=== PATIENT | female | born 1985 | race Asian ===

== ENCOUNTER → 2016-06-13 | Outpatient (CLI) | payer OTHER ==
[~2016-06-13] MED LIST: ISOVUE-370 76% 100ML VIAL (Q9967) As Ordered ONE
--- NOTE | 2016-06-13 13:53 | REP ---
HYSTEROSALPINGOGRAM: HISTORY: Female infertility. 1 minute 12 seconds of fluoroscopy time was utilized. PROCEDURE: Fluoroscopic sequential spot films were obtained. Contrast was injected by the referring steel loader. FINDINGS: Multiple fluoroscopic spot films of the pelvis demonstrate that the uterus is tipped to the right. The uterine endometrium is normal in position. There is no evidence of filling defect or synechia. Isthmic segments of the fallopian tubes are opacified bilaterally. There is ultimately opacification of a portion of each ampullary segment. At this point however, interstitial lymphatic contrast uptake was observed particularly in the region of the right fallopian tube. No peritoneal spillage could be observed from either fallopian tube. There was fairly prominent interstitial lymphatic uptake with ultimate partial opacification of the pelvic veins. Drainage view shows no abnormality. A lateral view of the pelvis following removal of the speculum and endometrial cannula shows no evidence of peritoneal contrast. IMPRESSION: Bilateral tubal occlusion. Prominent interstitial and lymphatic filling. Unremarkable endometrial cavity. Signed by Omid Reyes MD 06/13/2016 02:07 P
== END ==
LOC: M RADPRO 11:35
PROVIDERS: ATTEND Obstetrics & Gynecology
DX: N97.1 Female infertility of tubal origin (principal)
CPT/HCPCS: 58340; 74740; Q9967

== ENCOUNTER → 2016-08-21 | Outpatient (CLI) | payer OTHER ==
--- NOTE | 2016-08-21 16:12 | REP ---
DIGITAL DIAGNOSTIC UNILATERAL RIGHT BREAST MAMMOGRAPHY AND FOCUSED RIGHT BREAST SONOGRAPHY: History: Right breast lump. No comparison mammography. Mammographic findings: A skin marker is affixed to the skin at the site of the palpable lump. This projects in the upper outer quadrant. Heterogeneous dense fibroglandular background echotexture is seen in a pattern which inhibits the sensitivity of mammography. No mass lesion is seen. No architectural distortion or microcalcification is observed. No mammographic abnormality. Sonographic findings: The right breast is scanned from 9 o'clock to 12 o'clock at the with the palpable lump at 10 o'clock. Heterogeneous fibroglandular background echotexture is seen corresponding with the dense mammographic tissue. Within this echodense background texture are multiple somewhat nodular hypoechoic areas with a benign appearance. No irregular or spiculated lesion is seen. At 10 o'clock laterally at the level of the palpable lump, there is a hypoechoic oval shaped nodule measuring 0.7 x 0.6 x 0.4 cm. This has a small hilar architecture consistent with a small lymph node. More laterally at 10 o'clock there is a second lymph node measuring 2.1 x 2.4 x 0.5 cm also with an echogenic hilum. This may be two adjacent lymph nodes. Impression: BIRADS category II benign breast imaging. Sonographic findings at the site of the palpable lump suggest a small intramammary lymph node. Clinical follow-up is advised. No suspicious imaging findings. This negative report should not dissuade one from biopsy of a palpable lump depending on its clinical characteristics. This mammogram was interpreted with the aid of an FDA-approved computer-aided detection system. The patient states she had a clinical breast exam in July 2016. The patient letter being requested is M2. Signed by Omid Reyes MD 08/22/2016 07:29 A
== END ==
LOC: M RAD 10:28
PROVIDERS: ATTEND Family Medicine
DX: R92.8 Other abnormal and inconclusive findings on diagnostic imaging of breast (principal)
CPT/HCPCS: 76642; G0206

== ENCOUNTER → 2016-11-24 | Outpatient (CLI) | payer OTHER ==
[2016-11-24 10:30] LABS: ESTRADIOL 58.7 PG/ML; PROGESTERONE 30.6 NG/ML
== END ==
LOC: M LAB 07:41
PROVIDERS: ATTEND Obstetrics & Gynecology Reproductive Endocrinology
DX: N97.9 Female infertility, unspecified (principal)

== ENCOUNTER → 2016-11-27 | Outpatient (CLI) | payer OTHER ==
[2016-11-27 09:03] LABS: HCG, SERUM QUANTITATIVE < 1.0 MIU/ML
[2016-11-27 10:08] LABS: PROGESTERONE 21.7 NG/ML
== END ==
LOC: M LAB 08:09
PROVIDERS: ATTEND Obstetrics & Gynecology Reproductive Endocrinology
DX: N97.9 Female infertility, unspecified (principal)

== ENCOUNTER → 2016-12-01 | Outpatient (CLI) | payer OTHER ==
--- NOTE | 2016-12-01 09:50 | REP ---
TRANSVAGINAL PELVIC ULTRASOUND FOLLICLE STUDY: Real-time sonographic evaluation of the pelvis is performed utilizing transvaginal technique. The uterus measures 8.9 x 4.5 x 6.2 cm. Possible fundal fibroid measures 1.9 x 1.9 x 2.2 cm. Endometrial stripe measures 4 mm. Right ovary measures 3.1 x 2.3 x 2.1 cm. There are approximately 17 subcentimeter follicles in the right ovary. The left ovary measures 2.6 x 2.2 x 3.2 cm. There are approximately 19 subcentimeter follicles in the left ovary. No follicles are seen in either ovary greater than 1 cm in diameter. Signed by Jani Naidu MD 12/01/2016 05:21 P
[2016-12-01 10:30] LABS: HCG, SERUM QUANTITATIVE < 1.0 MIU/ML
[2016-12-01 10:39] LABS: PROGESTERONE 0.8 NG/ML
[2016-12-01 10:40] LABS: ESTRADIOL 49.1 PG/ML; FOLLICLE STIMULATING HORMONE 6.1 mIU/mL; LUTEINIZING HORMONE 1.3 mIU/mL
== END ==
LOC: M RAD 09:00 → M LAB 09:00
PROVIDERS: ATTEND Obstetrics & Gynecology Reproductive Endocrinology
DX: E28.9 Ovarian dysfunction, unspecified (principal)

== ENCOUNTER → 2016-12-08 | Outpatient (CLI) | payer OTHER ==
--- NOTE | 2016-12-08 09:12 | REP ---
Pelvic ultrasound, endovaginal imaging for follicle analysis: Right ovary There are no follicles greater than 10 mm. There are seven follicles in the 2.1 - 8.5 mm range of. The right ovary is normal size measuring 3.3 x 1.4 x 2.7 cm. Left ovary There are no follicles greater than 10 mm. There are 12 follicles in the 2.6 - 9.3 mm size range. Left ovary is normal size measuring 3.1 x 2.0 x 2.6 cm. The uterus is anteverted and normal size measuring 8.7 x 4.4 x 5 point 7 cm. There is a 2.3 x 2.7 by 2.4 cm submucosal fibroid in the posterior myometrium. The endometrium is not thickened measuring 7.2 mm. The endometrium has a trilaminar appearance. Signed by Jani Villasenor MD 12/08/2016 09:04 A
[2016-12-08 10:13] LABS: ESTRADIOL 60.5 PG/ML; LUTEINIZING HORMONE 3.9 mIU/mL; PROGESTERONE < 0.2 NG/ML
== END ==
LOC: M RAD 08:32
PROVIDERS: ATTEND Obstetrics & Gynecology Reproductive Endocrinology
DX: E28.9 Ovarian dysfunction, unspecified (principal)

== ENCOUNTER → 2016-12-13 | Outpatient (CLI) | payer OTHER ==
--- NOTE | 2016-12-13 13:06 | REP ---
REASON: Infertility. The uterus measures 8.8 x 4.3 x 5.5 cm. The endometrial echo complex measures 3 mm. There is a small amount of free fluid in the cul-de-sac. Right ovary measures 3.2 x 1.8 x 4 cm. Within the right ovary there is a 1.5 x 1.3 cm sized follicle with seven additional follicles in the 3.8 to 9.6 mm range. Left ovary measures 2.6 x 2 x 2.5 cm. Within the left ovary there are five follicles which measure in the range from 4.5 to 8.4 mm. IMPRESSION: Ovarian follicle study as described above. Signed by Matti Coulter DO 12/13/2016 02:22 P
[2016-12-13 13:33] LABS: ESTRADIOL 716.2 PG/ML; LUTEINIZING HORMONE 3.8 mIU/mL; PROGESTERONE 0.3 NG/ML
== END ==
LOC: M RAD 12:00
PROVIDERS: ATTEND Obstetrics & Gynecology Reproductive Endocrinology
DX: E28.9 Ovarian dysfunction, unspecified (principal)

== ENCOUNTER → 2016-12-15 | Outpatient (CLI) | payer OTHER ==
--- NOTE | 2016-12-15 08:08 | REP ---
Clinical: Infertility. Technique: Transvaginal examination. Comparison: 12/13/2016. Findings: Uterus measures 8.2 x 4.5 x 6.6 cm. Endometrial complex measures 8.9 mm thickness. No discrete uterine or endometrial abnormalities appreciated. No pelvic fluid or adnexal mass lesions. Right ovary measures 3.4 x 1.5 x 2.5 cm approximately nine sub centimeter follicles. Left ovary measures 2.9 x 1.7 x 2.0 cm with approximately 17 sub centimeter follicles and 7.1 mm paraovarian cyst. Impression: Bilateral sub centimeter follicles. Signed by Vargas Rincon MD 12/15/2016 07:59 A
[2016-12-15 09:02] LABS: LUTEINIZING HORMONE 15.2 mIU/mL; PROGESTERONE 0.3 NG/ML
[2016-12-15 09:03] LABS: ESTRADIOL 884.1 PG/ML
== END ==
LOC: M RAD 07:22
PROVIDERS: ATTEND Obstetrics & Gynecology Reproductive Endocrinology
DX: N83.201 Unspecified ovarian cyst, right side (principal); N83.202 Unspecified ovarian cyst, left side

== ENCOUNTER → 2016-12-25 | Outpatient (CLI) | payer OTHER ==
[2016-12-25 11:14] LABS: PROGESTERONE 25.7 NG/ML
[2016-12-25 11:15] LABS: ESTRADIOL 46.3 PG/ML
== END ==
LOC: M RAD 09:31
PROVIDERS: ATTEND Obstetrics & Gynecology Reproductive Endocrinology
DX: N97.9 Female infertility, unspecified (principal)

== ENCOUNTER → 2016-12-29 | Outpatient (CLI) | payer OTHER ==
[2016-12-29 10:21] LABS: HCG, SERUM QUANTITATIVE < 1.0 MIU/ML
[2016-12-29 10:28] LABS: PROGESTERONE 43.4 NG/ML
== END ==
LOC: M LAB 09:27
PROVIDERS: ATTEND Obstetrics & Gynecology Reproductive Endocrinology
DX: N97.9 Female infertility, unspecified (principal)

== ENCOUNTER → 2017-01-24 | Outpatient (REF) | payer OTHER | LOC: M LAB REF 10:15 | PROVIDERS: ATTEND Obstetrics & Gynecology | DX: Z12.4 Encounter for screening for malignant neoplasm of cervix (principal) ==

== ENCOUNTER → 2017-07-27 | Outpatient (CLI) | payer OTHER ==
[2017-07-27 08:15] LABS: HCG, SERUM QUANTITATIVE < 1.0 MIU/ML
[2017-07-27 10:11] LABS: PROGESTERONE 0.9 NG/ML
[2017-07-27 10:12] LABS: ESTRADIOL 48.2 PG/ML; FOLLICLE STIMULATING HORMONE 5.8 mIU/mL; LUTEINIZING HORMONE 3.2 mIU/mL
== END ==
LOC: M RAD 06:06
DX: E28.9 Ovarian dysfunction, unspecified (principal)

== ENCOUNTER → 2017-08-03 | Outpatient (CLI) | payer OTHER ==
[2017-08-03 10:49] LABS: PROGESTERONE < 0.2 NG/ML
[2017-08-03 10:49] LABS: ESTRADIOL 57.8 PG/ML; LUTEINIZING HORMONE 3.3 mIU/mL
== END ==
LOC: M RAD 07:58
DX: N83.01 Follicular cyst of right ovary (principal); N83.02 Follicular cyst of left ovary; E28.9 Ovarian dysfunction, unspecified
CPT/HCPCS: 76830

== ENCOUNTER → 2017-08-10 | Outpatient (CLI) | payer OTHER ==
[2017-08-10 09:53] LABS: LUTEINIZING HORMONE 5.5 mIU/mL
[2017-08-10 09:53] LABS: PROGESTERONE < 0.2 NG/ML
[2017-08-10 09:54] LABS: ESTRADIOL 2016.9 PG/ML
== END ==
LOC: M RAD 07:54
DX: N97.9 Female infertility, unspecified (principal)

== ENCOUNTER → 2017-08-20 | Outpatient (CLI) | payer OTHER ==
[2017-08-20 09:41] LABS: ESTRADIOL 1543.2 PG/ML
[2017-08-20 09:41] LABS: PROGESTERONE 54.4 NG/ML
== END ==
LOC: M LAB 07:51
DX: E28.9 Ovarian dysfunction, unspecified (principal)
CPT/HCPCS: 84443

== ENCOUNTER → 2017-08-31 | Outpatient (CLI) | payer OTHER ==
[2017-08-31 11:30] LABS: HCG, SERUM QUANTITATIVE < 1.0 MIU/ML
[2017-08-31 11:34] LABS: PROGESTERONE < 0.2 NG/ML
== END ==
LOC: M RAD 09:10
DX: E28.9 Ovarian dysfunction, unspecified (principal)
CPT/HCPCS: 76830

== ENCOUNTER → 2017-09-14 | Outpatient (CLI) | payer OTHER ==
[2017-09-14 10:16] LABS: HCG, SERUM QUANTITATIVE < 1.0 MIU/ML
[2017-09-14 11:28] LABS: PROGESTERONE < 0.2 NG/ML
[2017-09-14 11:28] LABS: ESTRADIOL 331.7 PG/ML
[2017-09-14 11:29] LABS: FOLLICLE STIMULATING HORMONE 4.5 mIU/mL
[2017-09-14 11:45] LABS: LUTEINIZING HORMONE 4.5 mIU/mL
== END ==
LOC: M RAD 14:18
DX: E28.9 Ovarian dysfunction, unspecified (principal)
CPT/HCPCS: 76817

== ENCOUNTER → 2017-09-17 | Outpatient (CLI) | payer OTHER | LOC: M RAD 11:38 | DX: N97.9 Female infertility, unspecified (principal) | CPT/HCPCS: 76830 ==

== ENCOUNTER → 2017-09-17 | Outpatient (CLI) | payer OTHER ==
[2017-09-17 14:09] LABS: HCG, SERUM QUANTITATIVE < 1.0 MIU/ML
[2017-09-17 14:13] LABS: PROGESTERONE 1.5 NG/ML
[2017-09-17 14:13] LABS: LUTEINIZING HORMONE 6.9 mIU/mL
[2017-09-17 14:14] LABS: ESTRADIOL 158.8 PG/ML
== END ==
LOC: M LAB 12:17
DX: E28.9 Ovarian dysfunction, unspecified (principal); N97.9 Female infertility, unspecified
CPT/HCPCS: 76830; 83001

== ENCOUNTER → 2017-10-05 | Outpatient (CLI) | payer OTHER ==
[2017-10-05 12:42] LABS: ESTRADIOL 792.7 PG/ML; HCG, SERUM QUANTITATIVE 925 MIU/ML; LUTEINIZING HORMONE < 0.1 mIU/mL
[2017-10-05 12:42] LABS: PROGESTERONE 32.2 NG/ML
[2017-10-05 12:43] LABS: FOLLICLE STIMULATING HORMONE 0.6 mIU/mL
== END ==
LOC: M RAD 10:54
DX: E28.9 Ovarian dysfunction, unspecified (principal)
CPT/HCPCS: 76830

== ENCOUNTER → 2017-10-08 | Outpatient (CLI) | payer OTHER ==
[2017-10-08 12:07] LABS: PROGESTERONE 31.8 NG/ML
[2017-10-08 12:07] LABS: HCG, SERUM QUANTITATIVE 2274 MIU/ML
== END ==
LOC: M LAB 09:49
DX: O09.00 Supervision of pregnancy with history of infertility, unspecified trimester (principal)
CPT/HCPCS: 84702

== ENCOUNTER → 2017-10-16 | Outpatient (CLI) | payer OTHER ==
[2017-10-16 11:17] LABS: HCG, SERUM QUANTITATIVE 20761 MIU/ML
[2017-10-16 11:31] LABS: PROGESTERONE 40.9 NG/ML
[2017-10-16 11:32] LABS: FOLLICLE STIMULATING HORMONE 0.7 mIU/mL; LUTEINIZING HORMONE < 0.1 mIU/mL
== END ==
LOC: M LAB 09:26
DX: E28.9 Ovarian dysfunction, unspecified (principal)
CPT/HCPCS: 83001

== ENCOUNTER → 2017-10-16 | Outpatient (CLI) | payer OTHER | LOC: M RAD 08:26 | DX: O09.01 Supervision of pregnancy with history of infertility, first trimester (principal); Z3A.01 Less than 8 weeks gestation of pregnancy; Z36.89 Encounter for other specified antenatal screening; D25.0 Submucous leiomyoma of uterus; O34.11 Maternal care for benign tumor of corpus uteri, first trimester | CPT/HCPCS: 76801 ==

== ENCOUNTER 2017-10-26 14:20 | Emergency (ER) | payer OTHER ==
[2017-10-26 15:31] LABS: BASO # 0.1 10^3/uL (0.0-0.2); BASO % 0.7 % (0.0-1.0); EOS # 0.2 10^3/uL (0.0-0.50); EOS % 1.9 % (0.0-3.0); HEMATOCRIT 36.8 % (36.0-47.0); HEMOGLOBIN 11.9 g/dl (12.0-15.5); IMMATURE GRANULOCYTE % 0.2 % (0-3.0); LYMPH # 2.6 10^3/uL (1.5-4.5); LYMPH % 29.7 % (24.0-44.0); MEAN CORPUSCULAR HEMOGLOBIN 21.3 pg (27.0-33.0); MEAN CORPUSCULAR HGB CONC 32.3 g/dl (32.0-36.5); MEAN CORPUSCULAR VOLUME 65.8 fl (80.0-96.0); MONO # 0.6 10^3/uL (0.0-0.8); MONO % 7.4 % (0.0-5.0); NEUTROPHILS # 5.2 10^3/uL (1.8-7.7); NEUTROPHILS % 60.1 % (36.0-66.0); PLATELET COUNT, AUTOMATED 273 10^3/uL (150-450); RED BLOOD COUNT 5.59 10^6/uL (4.00-5.40); RED CELL DISTRIBUTION WIDTH 14.9 % (11.5-14.5); WHITE BLOOD COUNT 8.6 10^3/uL (4.0-10.0)
[2017-10-26 15:45] LABS: KETONE, URINE AUTO RFX NEGATIVE (NEGATIVE); LEUKOCYTE ESTERASE UR AUTO RFX NEGATIVE (NEGATIVE); NITRITE, URINE AUTO RFX NEGATIVE (NEGATIVE); RBC, URINE AUTO RFX 2 /HPF (0-3); SPECIFIC GRAVITY UR AUTO RFX 1.005 (1.002-1.035); SQUAM EPITHELIAL CELL UR AURFX 2 /HPF (0-6); WBC, URINE AUTO RFX 0 /HPF (0-3)
[2017-10-26 16:11] LABS: ANION GAP 6 MEQ/L (8-16); BLOOD UREA NITROGEN 10 MG/DL (7-18); CALCIUM LEVEL 9.1 MG/DL (8.5-10.1); CARBON DIOXIDE LEVEL 26 MEQ/L (21-32); CHLORIDE LEVEL 105 MEQ/L (98-107); CREATININE FOR GFR 0.62 MG/DL (0.55-1.30); GLOMERULAR FILTRATION RATE > 60.0 (>60); GLUCOSE, FASTING 82 MG/DL (70-100); HCG, SERUM QUANTITATIVE 93347 MIU/ML; POTASSIUM SERUM 4.2 MEQ/L (3.5-5.1); SODIUM LEVEL 137 MEQ/L (136-145)
== END 2017-10-26 17:11 | disposition home or self-care (01) ==
LOC: M ED 14:20
DX: O20.8 Other hemorrhage in early pregnancy (principal); Z87.59 Personal history of other complications of pregnancy, childbirth and the puerperium; Z3A.01 Less than 8 weeks gestation of pregnancy; O34.11 Maternal care for benign tumor of corpus uteri, first trimester; Z79.899 Other long term (current) drug therapy
CPT/HCPCS: 76801

== ENCOUNTER → 2017-11-02 | Outpatient (CLI) | payer OTHER ==
[2017-11-02 13:31] LABS: BASO # 0.1 10^3/uL (0.0-0.2); BASO % 0.7 % (0.0-1.0); EOS # 0.1 10^3/uL (0.0-0.50); EOS % 1.3 % (0.0-3.0); HEMATOCRIT 35.2 % (36.0-47.0); HEMOGLOBIN 11.4 g/dl (12.0-15.5); IMMATURE GRANULOCYTE % 0.3 % (0-3.0); LYMPH # 1.9 10^3/uL (1.5-4.5); LYMPH % 24.8 % (24.0-44.0); MEAN CORPUSCULAR HEMOGLOBIN 21.4 pg (27.0-33.0); MEAN CORPUSCULAR HGB CONC 32.4 g/dl (32.0-36.5); MEAN CORPUSCULAR VOLUME 66.2 fl (80.0-96.0); MONO # 0.5 10^3/uL (0.0-0.8); MONO % 7.1 % (0.0-5.0); NEUTROPHILS # 4.9 10^3/uL (1.8-7.7); NEUTROPHILS % 65.8 % (36.0-66.0); PLATELET COUNT, AUTOMATED 255 10^3/uL (150-450); RED BLOOD COUNT 5.32 10^6/uL (4.00-5.40); RED CELL DISTRIBUTION WIDTH 14.8 % (11.5-14.5); WHITE BLOOD COUNT 7.5 10^3/uL (4.0-10.0)
[2017-11-02 15:08] LABS: RUBELLA IgG QUALITATIVE IMMUNE (IMMUNE)
[2017-11-02 15:09] LABS: HBsAg Prenatal NEGATIVE (NEGATIVE)
[2017-11-02 15:10] LABS: CHLAMYDIA DNA AMPLIFICATION NEGATIVE (NEGATIVE); GC DNA AMPLIFICATION NEGATIVE (NEGATIVE)
[2017-11-02 15:37] LABS: HEPATITIS C VIRUS ABY INDEX < 0.0 INDEX (<0.8)
[2017-11-02 15:37] LABS: HIV 1&2 SCREEN CENTAUR NEGATIVE (NEGATIVE)
== END ==
LOC: M SMT 12:03
DX: Z34.81 Encounter for supervision of other normal pregnancy, first trimester (principal); Z3A.08 8 weeks gestation of pregnancy
CPT/HCPCS: 86762